=== PATIENT | male | born 1995 | race Caucasian/White ===

== ENCOUNTER 2019-04-09 08:02 | Emergency (ER) | payer OTHER ==
[~2019-04-09] VITALS: Ht 190.5 cm; Wt 92.4 kg
[2019-04-09] MEDS ORDERED: methylPREDNISolone INJ 125 MG/2 ML VIAL (J2930) IM ONE (10:30)
[2019-04-09] MEDS ORDERED: diphenhydrAMINE INJ 50MG/ML VIAL (J1200) IM ONE (10:30)
[2019-04-09] MEDS ORDERED: PRED20TA PO (10:49)
[2019-04-09] MEDS ORDERED: TRIA25CR TOP (10:49)
[2019-04-09 10:58] VITALS: BP 121/71
== END 2019-04-09 11:16 | disposition home or self-care (01) ==
LOC: M ED 08:02
DX: L25.9 Unspecified contact dermatitis, unspecified cause (principal); F17.200 Nicotine dependence, unspecified, uncomplicated; Z91.048 Other nonmedicinal substance allergy status
CPT/HCPCS: 96372; 99283; J1200; J2930